=== PATIENT | male | born 1990 | race Two or more races ===

== ENCOUNTER 2016-11-11 09:08 | Day surgery (SDC) | payer OTHER ==
[2016-10-22 11:02] LABS: ABSOLUTE EOSINOPHILS # (AUTO) 0.1 10^3/uL (0.0-0.6); ABSOLUTE LYMPHOCYTES (AUTO) 2.4 10^3/uL (0.5-4.7); ABSOLUTE MONOCYTES (AUTO) 0.5 10^3/uL (0.1-1.4); BASOPHILS % (AUTO) 0.7 % (0-2); EOSINOPHILS % (AUTO) 1.4 % (0-6); HEMATOCRIT 48.3 % (37.9-51.0); HEMOGLOBIN 15.8 g/dL (13.5-17.0); HGB HCT DIFFERENCE -0.9; MEAN CORPUSCULAR HEMOGLOBIN 28.8 pg (27.0-33.4); MEAN CORPUSCULAR HGB CONC 32.8 g/dL (32.0-36.0); MEAN CORPUSCULAR VOLUME 88 fl (80-97); MONOCYTES % (AUTO) 8.9 % (3-13); RED CELL DISTRIBUTION WIDTH 13.3 % (11.5-14.0); WHITE BLOOD COUNT 6.1 10^3/uL (4.0-10.5)
[2016-10-22 11:07] LABS: APPEARANCE,URINE CLEAR; BILIRUBIN,URINE NEGATIVE (NEGATIVE); GLUCOSE, URINE NEGATIVE (NEGATIVE); KETONES,URINE NEGATIVE (NEGATIVE); LEUKOCYTE ESTERASE,URINE NEGATIVE (NEGATIVE); NITRITE,URINE NEGATIVE (NEGATIVE); PROTEIN,URINE NEGATIVE (NEGATIVE); URINE SPECIFIC GRAVITY 1.024; UROBILINOGEN,URINE NEGATIVE mg/dL (<2.0)
[2016-10-22 11:33] LABS: ANION GAP 14 (5-19); BLOOD UREA NITROGEN 9 mg/dL (7-20); CALCIUM 9.8 mg/dL (8.4-10.2); CARBON DIOXIDE 26 mmol/L (22-30); CHLORIDE 102 mmol/L (98-107); CREATININE RESULT 0.91 mg/dL (0.52-1.25); GLUCOSE 88 mg/dL (75-110); POTASSIUM 4.7 mmol/L (3.6-5.0); SODIUM 141.8 mmol/L (137-145)
--- NOTE | 2016-10-22 17:47 | EKG REPORT ---
SEVERITY:- NORMAL ECG - SINUS RHYTHM : Confirmed by: Luis M Cruz 22-Oct-2016 17:47:26
[~2016-11-11 09:08] MED LIST: CEFAZOLIN 2 GM/D5W RTU 2 GM/50 ML RTUPB IV PRN; LACTATED RINGERS 1000 ML IV PRN; LIDOCAINE 0.5% INJ-PF (5 MG/ML) 50 ML SDV SUBCUT PRN; RINGERS SOLUTION,LACTATED 1,000 ML IV PRN
[2016-11-11] MEDS ORDERED: SUCCINYLCHOLINE CHLORIDE INJ 200 MG/10 ML VIAL ONE (10:07)
[2016-11-11] MEDS ORDERED: ROCURONIUM BROMIDE INJ 50 MG/5 ML VIAL IV ONE (10:07)
[2016-11-11] MEDS ORDERED: FENTANYL CITRATE INJ/PF 250 MCG/5 ML AMPULE ONE (12:32)
[2016-11-11] MEDS ORDERED: ONDANSETRON HCL INJ/PF 4 MG/2 ML SDV ONE (12:32)
[2016-11-11] MEDS ORDERED: MIDAZOLAM 2 MG/2 ML INJ ONE (12:32)
[2016-11-11] MEDS ORDERED: DEXAMETHASONE SOD PHOSPHATE INJ 4 MG/1 ML VIAL ONE (12:32)
[2016-11-11] MEDS ORDERED: MORPHINE SULFATE 10 MG/ML INJ ONE (12:32)
[2016-11-11] MEDS ORDERED: PROPOFOL INJ 200 MG/20 ML VIAL IV ONE (12:32)
[2016-11-11] MEDS ORDERED: IBUPROFEN INJ 800 MG/8 ML VIAL IV ONE (12:33)
[2016-11-11] MEDS ORDERED: FENTANYL CITRATE INJ/PF 100 MCG/2 ML AMPUL IV PRN ×3 (13:09)
[2016-11-11] MEDS ORDERED: MEPERIDINE HCL/PF INJ 25 MG/1 ML DISP.SYRIN IV PRN (13:09)
[2016-11-11] MEDS ORDERED: DIPHENHYDRAMINE HCL 50 MG/ML VIAL IV PRN (13:09)
[2016-11-11] MEDS ORDERED: OXYCODONE-ACETAMINOPHEN 5-325 MG TABLET PO PRN ×4 (13:09→15:36)
[2016-11-11] MEDS ORDERED: PROMETHAZINE HCL INJ 25 MG/1 ML VIAL IV PRN ×2 (13:09)
[2016-11-11] MEDS ORDERED: MORPHINE SULFATE 10 MG/ML INJ IV PRN (13:09)
[2016-11-11] MEDS ORDERED: BUPIVACAINE HCL 0.5 % INJ/PF 30 ML SDV ONE (13:52)
[2016-11-11] MEDS ORDERED: EPINEPHRINE INJ 30 MG/30 ML VIAL ONE (13:52)
[2016-11-11] MEDS: FENTANYL CITRATE INJ/PF 100 MCG/2 ML AMPUL ONE ×2 (14:48→15:00)
--- NOTE | 2016-11-11 14:49 | PDOC DISCHARGE SUMMARY ---
Discharge Summary (SDC) - Discharge Final Diagnosis: Left shoulder arthroscopic labral repair Date of Surgery: 11/11/16 Discharge Date: 11/11/16 Condition: Good Treatment or Instructions: Patient is instructed to follow up in 10-14 days. Patient instructed to remove dressing in 4 days then can shower and apply Band- Aids as needed. Patient to wear sling for comfort but okay to remove for shower and pendulum exercises. Pendulum exercises are instructed to be done 3 times a day ideally with breakfast, lunch, dinners and showers. Patient instructed to call if there is any signs of redness or drainage fevers or chills. Prescriptions: Oxycodone HCl/Acetaminophen [Percocet 5-325 mg Tablet] 1 - 2 tab PO ASDIR PRN # 40 tablet PRN Reason: Discharge Diet: As Tolerated Respiratory Treatments at Home: Deep Breathing/Coughing Discharge Activity: No Driving - While on narcotics, No Lifting/Push/Pulling, No tub bath Home Care Assistance: None Needed Report the Following to Your Physician Immediately: Shortness of Breath, Increase in Pain, Fever over 101 Degrees, Unusual Bleeding, Redness, Swelling, Warmth, Drainage-Yellow, Drainage-[place], Drainage-Green, Drainage-Foul Smelling
--- NOTE | 2016-11-11 15:02 | Operative Report ---
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 Patient then was placed in lateral decubitus position with a beanbag securing him. Axillary roll was applied as well. Head was secured with a foam pillow. The left shoulder was prepped and draped in a normal sterile surgical fashion, timeout was done identifying the left shoulder as the correct site. The arm was then placed in 10 pounds of traction using the shoulder distraction system from [employer]. Spinal needle was introduced via the posterior portal and the joint was distended with sterile fraying solution. 11 blade was used to establish the posterior portal and the trocar was introduced. Return of fluid showing proper placement. Camera was introduced and then under direct visualization the anterior portal was established and a blue cannula was inserted. Patient noted to have a small Hill-Sachs deformity in the humeral head. Immediately also visualized with the anterior inferior labral tear with some cartilage wear from previous dislocations. We used a 4.0 mm shaver to debride some of the labral tear and probe was used showing the extent of the tear. Labral elevator was used to release the labrum for mobilization and reattachment. Rasp was used as well as a shaver to debride the glenoid rim for bleeding and improved healing of her labral repair at the end. We used a suture lasso to shuttle the labral tape through the torn labrum and capsule. Proceeded to secure the labral tape and a block and then proceeded to use a 2.9 drill guide to drill on the glenoid face. The secured the label tape and with the push lock into the predrilled hole and went down to the laser line. The disposable portion was removed and arthroscopic cutter was used to cut the remaining strands. I repeated this process [] times, securing the torn anterior inferior labrum to the glenoid and closing the capsular volume as well. Probe was used to show my repair and to pull and make sure there was proper tension on my repair. At this point once I was satisfied with the repair fluid from the shoulder was removed and all instruments and cannulas were removed. The 2 portal sites were closed with 3-0 nylon. Incisions were covered with Xeroform, 4 x 4 dressing, ABD pads. Dressings were secured with Medipore tape. Drapes were removed and extremity was placed in a supine position and extubated and sent to PACU in stable condition.
[2016-11-11 18:25] VITALS: BP 126/87
== END 2016-11-11 18:23 | disposition home or self-care (01) ==
LOC: OROUT 09:08
PROVIDERS: ATTEND Orthopaedic Surgery
PROC: 0MM24ZZ Reattachment of Left Shoulder Bursa and Ligament, Percutaneous Endoscopic Approach (ICD-10-PCS; principal; 2016-11-11 11:15)
DX: S43.432A Superior glenoid labrum lesion of left shoulder, initial encounter (principal); X58.XXXA Exposure to other specified factors, initial encounter; M24.412 Recurrent dislocation, left shoulder; G47.33 Obstructive sleep apnea (adult) (pediatric); F17.290 Nicotine dependence, other tobacco product, uncomplicated
CPT/HCPCS: 93005; 36415; 85025; 80048; 81001; 93010; 29807; L3650; C1713; J2250; J3490; J1100; J0171; J3010 ×2; J2270; J0330; J2405; J2704; J0690; J1741; 1630